=== PATIENT | male | born 1955 | race Caucasian/White ===

== ENCOUNTER 2016-05-09 21:38 | Emergency (ER) | payer OTHER ==
[~2016-05-09] VITALS: Ht 177.8 cm; Wt 99.0 kg
[~2016-05-09 21:38] MED LIST: ANTI50TA PO; DICY1TAB26 PO; SIMV20 PO; STOO100C PO
[2016-05-09 21:41] VITALS: BP 188/93; PULSE 85; RESP 18; TEMP 97.6; O2SAT 96
[2016-05-09] MEDS ORDERED: SIMV20TA PO (21:46)
[2016-05-09] MEDS ORDERED: AMLO5TAB2 PO (21:46)
[2016-05-09] MEDS ORDERED: SODIUM CHLORIDE 0.9% FLUSH 5 ML FLUSH IVF PRN (22:00)
[2016-05-09] MEDS ORDERED: ONDANSETRON HCL 4 MG/2 ML VIAL IVP ONE (22:00)
[2016-05-09] MEDS ORDERED: KETOROLAC TROMETHAMINE 30 MG/ML (IVP) VIAL IVP ONE (22:00)
--- NOTE | 2016-05-09 22:05 | PD ---
HPI Chief Complaint: Flank/Kidney Pain Time Seen by Provider: 21:56 Travel History International Travel<30 days: No Contact w/Intl Traveler<30days: No Traveled to known affect area: No History of Present Illness HPI 61-year-old male came to the emergency room with history of right flank pain that started at 4 PM today. Patient's is in the hospital admitted and he was with her when the pain started. Patient says he's been drinking water a lot today especially after the pain started. However it kept getting worse when he decided to come to the emergency room. Patient seems very uncomfortable and has been changing position to get comfortable. She never had pain like this in the past. No history of back issues. No history of kidney stones. Vital signs are otherwise stable. Pain seems to be radiating from the back coming towards the front in the right lower quadrant. Patient was hypertensive in the triage. REPLACED BY [facility] Past Medical History Narrative Medical List of his past medical history is reviewed from the nursing note. High Cholesterol: Yes Diminished Hearing: No Hypertension: Yes Neurologic: Yes (BELLS PALSY) Immunizations Current: Yes Social History Alcohol Use: Yes (MODERATE) Tobacco Use: No Substance Use: No Allergies-Medications (Allergen,Severity, Reaction): Coded Allergies: No Known Allergies (Unverified , 05/09/16) Comments No known drug allergies. Reported Meds & Prescriptions Reported Meds & Active Scripts Active Flomax (Tamsulosin HCl) 0.4 Mg Cap 0.4 Mg PO HS Zofran Odt (Ondansetron Odt) 4 Mg Tab 4 Mg SL Q6HR PRN Hydrocodone-Acetaminophen 5-325 mg Tab 1 Tab PO Q6H PRN Reported Amlodipine (Amlodipine Besylate) 5 Mg Tab 5 Mg PO DAILY Simvastatin 20 Mg Tab 20 Mg PO HS Narrative Medication List of his home medications reviewed from the nursing note. Review of Systems Except as stated in HPI: all other systems reviewed are Neg Physical Exam Narrative GENERAL: Awake, alert, anxious, significant distress SKIN: Warm and dry. HEAD: Atraumatic. Normocephalic. EYES: Pupils equal and round. No scleral icterus. No injection or drainage. ENT: No nasal bleeding or discharge. Mucous membranes pink and moist. NECK: Trachea midline. No JVD. CARDIOVASCULAR: Regular rate and rhythm. No murmur appreciated. RESPIRATORY: No accessory muscle use. Clear to auscultation. Breath sounds equal bilaterally. GASTROINTESTINAL: Abdomen soft, non-tender, nondistended. Hepatic and splenic margins not palpable. MUSCULOSKELETAL: No obvious deformities. No clubbing. No cyanosis. No edema. NEUROLOGICAL: Awake and alert. No obvious cranial nerve deficits. Motor grossly within normal limits. Normal speech. PSYCHIATRIC: Appropriate mood and affect; insight and judgment normal. Data Data Last Documented VS Vital Signs Date Time Temp Pulse Resp B/P Pulse Ox O2 Delivery O2 Flow Rate FiO2 05/09/16 23:46 72 18 140/78 98 Room Air 05/09/16 21:41 97.6 Orders Complete Blood Count With Diff (05/09/16 21:58) Comprehensive Metabolic Panel (05/09/16 21:58) Lipase (05/09/16 21:58) Urinalysis - C+S If Indicated (05/09/16 21:58) Ct Abd/Pel W/O Iv Contrast (05/09/16 21:58) Iv Access Insert/Monitor (05/09/16 21:58) Ecg Monitoring (05/09/16 21:58) Oximetry (05/09/16 21:58) Ondansetron Inj (Zofran Inj) (05/09/16 22:00) Sodium Chloride 0.9% Flush (Ns Flush) (05/09/16 22:00) Ketorolac Inj (Toradol Inj) (05/09/16 22:00) Morphine Inj (Morphine Inj) (05/09/16 22:15) Ondansetron Inj (Zofran Inj) (05/09/16 22:15) Sodium Chlorid 0.9% 500 Ml Inj (Ns 500 M (05/09/16 22:15) Tamsulosin (Flomax) (05/09/16 22:45) Sodium Chlorid 0.9% 500 Ml Inj (Ns 500 M (05/09/16 22:45) Morphine Inj (Morphine Inj) (05/10/16 00:00) Strain Urine PRN (05/09/16 23:48) Labs Laboratory Tests Test 05/09/16 05/09/16 22:00 22:57 White Blood Count 7.4 TH/MM3 Red Blood Count 4.85 MIL/MM3 Hemoglobin 13.8 GM/DL Hematocrit 39.9 % Mean Corpuscular Volume 82.2 FL Mean Corpuscular Hemoglobin 28.4 PG Mean Corpuscular Hemoglobin 34.6 % Concent Red Cell Distribution Width 13.6 % Platelet Count 217 TH/MM3 Mean Platelet Volume 7.1 FL Neutrophils (%) (Auto) 53.4 % Lymphocytes (%) (Auto) 36.5 % Monocytes (%) (Auto) 7.6 % Eosinophils (%) (Auto) 2.2 % Basophils (%) (Auto) 0.3 % Neutrophils # (Auto) 4.0 TH/MM3 Lymphocytes # (Auto) 2.7 TH/MM3 Monocytes # (Auto) 0.6 TH/MM3 Eosinophils # (Auto) 0.2 TH/MM3 Basophils # (Auto) 0.0 TH/MM3 CBC Comment DIFF FINAL Differential Comment Sodium Level 139 MEQ/L Potassium Level 3.5 MEQ/L Chloride Level 104 MEQ/L Carbon Dioxide Level 27.0 MEQ/L Anion Gap 8 MEQ/L Blood Urea Nitrogen 16 MG/DL Creatinine 1.45 MG/DL Estimat Glomerular Filtration 50 ML/MIN Rate Random Glucose 133 MG/DL Calcium Level 8.6 MG/DL Total Bilirubin 0.5 MG/DL Aspartate Amino Transf 20 U/L (AST/SGOT) Alanine Aminotransferase 28 U/L (ALT/SGPT) Alkaline Phosphatase 58 U/L Total Protein 7.4 GM/DL Albumin 3.9 GM/DL Lipase 248 U/L Urine Color YELLOW Urine Turbidity CLEAR Urine pH 7.5 Urine Specific [place] 1.022 Urine Protein NEG mg/dL Urine Glucose (UA) NEG mg/dL Urine Ketones NEG mg/dL Urine Occult Blood NEG Urine Nitrite NEG Urine Bilirubin NEG Urine Urobilinogen LESS THAN 2.0 MG/DL Urine Leukocyte Esterase NEG Urine RBC 2 /hpf Urine WBC 1 /hpf Urine Squamous Epithelial <1 /hpf Cells Urine Mucus FEW /lpf Microscopic Urinalysis Comment CULT NOT INDICATED MDM Medical Decision Making Medical Screen Exam Complete: Yes Emergency Medical Condition: Yes Medical Record Reviewed: Yes Differential Diagnosis Renal colic, pyelonephritis, muscular skeletal pain Narrative Course 10:37 PM awaiting for the blood test result. CT scan shows mild to moderate hydronephrosis with a 2-3 mm renal calculi. Order Flomax as well. Patient was given pain medication. 11:40 PM blood test results and urinalysis are within normal limit. Patient never took the morphine I had ordered initially since he was relieved just with Toradol. However I just reassessed him and let him know about the test results and he says the pain is starting to come back. He will take the morphine at this point. I would discharge him home otherwise since its a small sized stone and he should be able to pass it. He will go home with a urine strainer as well as prescriptions and urology to follow up with. Patient understands all this. He is comfortable going home and I'm comfortable discharging him. His [id number] is here who will take him home. Procedures EKG Prior to Arrival: No Diagnosis Primary Impression: Ureteral colic Referrals: Conrado Mcclellan MD 2 days Additional Instructions: Please return to the ER if the condition worsens or any other new concerns like nonstop vomiting, fever and chills or any other symptoms that concerns here. Otherwise take the medication as per the prescription direction. Do not drive while taking the pain medication since it'll make you groggy. Used a urine strainer every time he urinated till he passed the stone. Follow up with the urologist whose name and number has been given to you. Follow-up with your primary care. Med/Other Pt SpecificInfo: Prescription(s) given Scripts Tamsulosin (Flomax)0.4 Mg Cap0.4 Mg PO HS #10 CAP Ref 0 Prov:Mary Wallis MD 05/09/16 Ondansetron Odt (Zofran Odt)4 Mg Tab4 Mg SL Q6HR PRN (Nausea/Vomiting) #20 TAB Ref 0 Prov:Mary Wallis MD 05/09/16 Hydrocodone-Acetaminophen 5-325 mg Tab1 Tab PO Q6H PRN (PAIN) #15 TAB Ref 0 Prov:Mary Wallis MD 05/09/16 Disposition: 01 DISCHARGE HOME Condition: Stable Mary Wallis MD May 09, 2016 22:05
[2016-05-09] MEDS: ONDANSETRON HCL 4 MG/2 ML VIAL IV PUSH ONE ×2 (22:15→23:53)
[2016-05-09] MEDS ORDERED: MORPHINE SULFATE 8 MG/ML INJ IV PUSH ONE (22:15)
[2016-05-09] MEDS ORDERED: SODIUM CHLORID 0.9% 500 ML INJ 500 ML IV ONE ×2 (22:15→22:45)
--- NOTE | 2016-05-09 22:29 | RADRPT ---
EXAM DATE/TIME: 05/09/2016 22:15 [place] COMPARISON: No previous studies available for comparison. INDICATIONS : Right flank pain and urination urgency. ORAL CONTRAST: No oral contrast ingested. RADIATION DOSE: 22.69 CTDIvol (mGy) MEDICAL HISTORY : Hypertension. bells palsy SURGICAL HISTORY : None. ENCOUNTER: Initial ACUITY: 1 day PAIN SCALE: 7/10 LOCATION: Right flank TECHNIQUE: Volumetric scanning of the abdomen and pelvis was performed. Using automated exposure control and ad justment of the mA and/or kV according to patient size, radiation dose was kept as low as reasonably achievable to obtain optimal diagnostic quality images. FINDINGS: LOWER LUNGS: The visualized lower lungs are clear. LIVER: Homogeneous density without lesion. There is no dilation of the biliary tree. No calcified gallston es. SPLEEN: Normal size without lesion. PANCREAS: Within normal limits. KIDNEYS: Normal in size and shape. There is no mass, stone, or hydronephrosis on the left. Mild obstructive u ropathy on the right secondary to a right UVJ calculus measuring to 3 mm.. ADRENAL GLANDS: Within normal limits. VASCULAR: There is no aortic aneurysm. BOWEL/MESENTERY: Diverticulosis without diverticulitis. There is no free intraperitoneal air or fluid. ABDOMINAL WALL: Within normal limits. RETROPERITONEUM: There is no lymphadenopathy. BLADDER: No wall thickening or mass. REPRODUCTIVE: Within normal limits. INGUINAL: There is no lymphadenopathy or hernia. MUSCULOSKELETAL: Within normal limits for patient age. CONCLUSION: 1. Mild obstructive uropathy secondary to a right UVJ calculus measuring 2-3 mm. 2. Diverticulosis without diverticulitis. Eduardo Lacy MD on May 09, 2016 at 22:26 Board Certified Radiologist. This report was verified electronically.
[2016-05-09] MEDS ORDERED: TAMSULOSIN HCL 0.4 MG CAP PO ONE (22:45)
[2016-05-09 22:50] LABS: BASOPHIL % 0.3 % (0.0-2.0); EOSINOPHIL # 0.2 TH/MM3 (0-0.4); EOSINOPHIL % 2.2 % (0.0-4.0); HEMATOCRIT 39.9 % (39.0-51.0); HEMO FLAGS DIFF FINAL; LYMPH % 36.5 % (9.0-44.0); LYMPHOCYTE # 2.7 TH/MM3 (1.0-4.8); MEAN CELL VOLUME 82.2 FL (80.0-100.0); MEAN CORPUSCULAR HEMOGLOBIN 28.4 PG (27.0-34.0); MEAN CORPUSCULAR HGB CONC 34.6 % (32.0-36.0); MONO % 7.6 % (0.0-8.0); NEUT % 53.4 % (16.0-70.0); PLATELET COUNT 217 TH/MM3 (150-450); RED BLOOD COUNT 4.85 MIL/MM3 (4.50-5.90); RED CELL DISTRIBUTION WIDTH 13.6 % (11.6-17.2); WHITE BLOOD COUNT 7.4 TH/MM3 (4.0-11.0)
[2016-05-09 23:06] VITALS: BP 133/78; PULSE 69; RESP 18; O2SAT 98
[2016-05-09 23:27] LABS: ALT (GPT) 28 U/L (12-78); ANION GAP 8 MEQ/L (5-15); AST (GOT) 20 U/L (15-37); BLOOD UREA NITROGEN 16 MG/DL (7-18); CHLORIDE 104 MEQ/L (98-107); GLOMERULAR FILTRATION RATE 50 ML/MIN (>89); POTASSIUM 3.5 MEQ/L (3.5-5.1); SODIUM (NA) 139 MEQ/L (136-145)
[2016-05-09 23:29] LABS: ALKALINE PHOSPHATASE 58 U/L (45-117); TOTAL BILIRUBIN ADULT 0.5 MG/DL (0.2-1.0)
[2016-05-09 23:37] LABS: BLOOD, URINE NEG (NEG); COMMENT (UR) CULT NOT INDICATED; CULTURE IF INDICATED CULT NOT INDICATED; GLUCOSE,URINE NEG (NEG); KETONE, URINE NEG (NEG); MUCUS URINE FEW /lpf (OCC); NITRITE,URINE NEG (NEG); PH, URINE 7.5 (5.0-8.5); SQUAMOUS EPITHELIAL CELL URINE <1 /hpf (0-5); URINE COLOR YELLOW (YELLW/STRAW)
[2016-05-09 23:46] VITALS: BP 140/78; PULSE 72; RESP 18; O2SAT 98
[2016-05-09] MEDS ORDERED: ZOFR4TAB3 SL (23:47)
[2016-05-09] MEDS ORDERED: HYDR-3516 PO (23:47)
[2016-05-09] MEDS ORDERED: TAMS5CAP PO (23:47)
[2016-05-10] MEDS ORDERED: MORPHINE SULFATE 8 MG/ML INJ IV PUSH ONE
== END 2016-05-10 00:15 | disposition home or self-care (01) ==
LOC: NEPC 21:38
DX: N13.2 Hydronephrosis with renal and ureteral calculous obstruction (principal)
CPT/HCPCS: 74176; 80053; 81001; 83690; 85025; 96374; 96375; 96376; 99284; J1885; J2270; J2405; J7040